=== PATIENT | female | born 1955 | race Caucasian/White ===

== ENCOUNTER 2020-07-30 06:54 | Inpatient (IN) ==
[2020-07-24 13:35] LABS: Basophils % 0.3 % (0.0-0.8); Eosinophils # 0.1 10*3/uL (0.0-0.87); Eosinophils % 1.2 % (0.00-10.9); Hematocrit 41.1 VOL% (35.7-47.0); Hemoglobin 13.5 GM/DL (12.0-16.0); Immature Granulocytes % 0.3 %; Immature Granulocytes Absolute 0.02 #; Lymphocytes # 2.3 10*3/uL (1.4-4.0); Lymphocytes % 33.2 % (21.3-54.2); Mean Corpuscular HGB Conc 32.8 GM/DL (32-36); Mean Corpuscular Volume 94.1 FL (87-102); Mean Platelet Volume 12.1 FL (9.6-12.0); Monocytes % 8.1 % (1.7-12.7); Neutrophils % 56.9 % (38.7-73.9); Platelet Count 216 T/CUMM (130-400); Red Blood Count 4.37 MC/CUMM (3.8-5.5); White Blood Count 6.9 T/CUMM (4-12)
[2020-07-24 13:58] LABS: Calcium 8.7 MG/DL (8.5-10.1); Osmolality,Calculated 282.3 MOS/KG (273-304); Potassium 3.6 MMOL/L (3.5-5.1)
[2020-07-24 14:34] LABS: INR 0.9
[2020-07-30] MEDS ORDERED: VANCOMYCIN INJ 500 MG in SODIUM CHLORIDE 0.9% 100 ML IV ONE (07:00)
[2020-07-30] MEDS ORDERED: FAMOTIDINE 20 MG TABLET PO ONE (07:22)
[2020-07-30] MEDS ORDERED: DIAZEPAM 5 MG TABLET PO ONE (07:22)
[2020-07-30] MEDS ORDERED: ACETAMINOPHEN 500 MG TABLET PO ONE (07:22)
[2020-07-30] MEDS ORDERED: ALBUTEROL/IPRATROPIUM 3 ML NEB RESP TX ONE (07:22)
[2020-07-30] MEDS ORDERED: HEPARIN/NACL 0.9% 2 UNITS/ML 500 ML IV ONE (07:22)
[2020-07-30] MEDS ORDERED: MIDAZOLAM 2 MG/2 ML VIAL ONE ×2 (07:23→07:43)
[2020-07-30] MEDS ORDERED: fentaNYL 100 MCG/2 ML VIAL ONE ×3 (07:23→09:45)
[2020-07-30] MEDS ORDERED: NITROGLYCERIN DRIP 50 MG/250 ML BOTTLE IV ONE (08:10)
[2020-07-30] MEDS ORDERED: PHENYLEPHRINE DRIP 20 MG/250 ML PREMIX IV ONE (08:11)
[2020-07-30] MEDS: LACTATED RINGERS 1,000 ML IV SCH ×3 (09:00→15:01)
[2020-07-30] MEDS ORDERED: ROCURONIUM 50 MG/5 ML VIAL IV ONE (11:03)
[2020-07-30] MEDS ORDERED: LIDOCAINE 2% 5 ML VIAL ONE (11:03)
[2020-07-30] MEDS ORDERED: PHENYLEPHRINE 1 MG/10 ML SYRINGE IV ONE ×2 (11:03→12:51)
[2020-07-30] MEDS ORDERED: DEXAMETHASONE 4 MG/1 ML VIAL ONE (11:03)
[2020-07-30] MEDS ORDERED: ONDANSETRON 4 MG/2 ML VIAL ONE (11:03)
[2020-07-30] MEDS ORDERED: propofoL 200 MG/20 ML VIAL IV ONE (11:03)
[2020-07-30] MEDS ORDERED: NEOSTIGMINE 10 MG/10 ML VIAL ONE (11:04)
[2020-07-30] MEDS ORDERED: GLYCOPYRROLATE 0.4 MG/2 ML VIAL ONE (11:04)
[2020-07-30] MEDS ORDERED: BISACODYL 5 MG TABLET PO PRN (11:08)
[2020-07-30] MEDS ORDERED: HYDROmorphone 2 MG/1 ML VIAL ONE (11:35)
[2020-07-30 11:45] LABS: Bilirubin,Urine Negative (Negative); Blood, Urine Negative (Negative); Glucose,Urine (UA) Negative (Negative); Ketones,Urine Negative (Negative); Mucus,Urine Occasional /LPF (Occasional); Nitrite,Urine Negative (Negative); Protein,Urine Negative; RBC,Urine 1 /HPF (0-4); Squamous Epithelial Cell,Urine Occasional /HPF (0-10); Urine Appearance CLEAR (Clear); Urine Color Yellow (Yellow); Urine Specific Gravity 1.013 (1.001-1.035); Urine Urobilinogen < 2.0 EU/DL (0.2-1.0)
[2020-07-30] MEDS ORDERED: SEVOFLURANE 1 UNIT/15 MINUTE INH ONE (11:47)
[2020-07-30] MEDS ORDERED: ALBUMIN 5% 12.5 GM in PREMIX 1 EACH IV ONE (12:15)
[2020-07-30] MEDS ORDERED: ALBUMIN 5% 12.5 GM/250 ML VIAL IV ONE (12:15)
[2020-07-30] MEDS ORDERED: PHENYLEPHRINE DRIP 40 MG/250 ML PREMIX IV ONE (13:15)
[2020-07-30] MEDS: fentaNYL 2 MCG/ROPIV 0.2% EPID 100 ML EPIDURAL SCH (15:00)
[2020-07-30] MEDS: ALBUTEROL/IPRATROPIUM 3 ML NEB RESP TX SCH (15:45)
[2020-07-31] MEDS: ALBUTEROL/IPRATROPIUM 3 ML NEB RESP TX SCH ×5 (00:04→19:41)
[2020-07-31] MEDS: fentaNYL 2 MCG/ROPIV 0.2% EPID 100 ML EPIDURAL SCH ×2 (00:45→05:04)
[2020-07-31] MEDS ORDERED: ENOXAPARIN 40 MG/0.4 ML SYRINGE SUBCUT SCH (05:10)
[2020-07-31 05:45] LABS: Basophils % 0.1 % (0.0-0.8); Hematocrit 32.5 VOL% (35.7-47.0); Hemoglobin 10.7 GM/DL (12.0-16.0); Immature Granulocytes % 0.5 %; Immature Granulocytes Absolute 0.07 #; Lymphocytes # 1.9 10*3/uL (1.4-4.0); Lymphocytes % 12.1 % (21.3-54.2); Mean Corpuscular HGB Conc 32.9 GM/DL (32-36); Mean Corpuscular Volume 93.4 FL (87-102); Mean Platelet Volume 11.2 FL (9.6-12.0); Monocytes % 10.3 % (1.7-12.7); Platelet Count 200 T/CUMM (130-400); Red Blood Count 3.48 MC/CUMM (3.8-5.5); Red Cell Distribution Width 12.4 % (9.3-17.3); White Blood Count 15.4 T/CUMM (4-12)
[2020-07-31 06:50] LABS: Osmolality,Calculated 279.3 MOS/KG (273-304); Potassium 3.7 MMOL/L (3.5-5.1)
[2020-07-31] MEDS: LACTATED RINGERS 1,000 ML IV SCH ×2 (09:35)
[2020-08-01] MEDS: fentaNYL 2 MCG/ROPIV 0.2% EPID 100 ML EPIDURAL SCH (01:06)
[2020-08-01] MEDS: ALBUTEROL/IPRATROPIUM 3 ML NEB RESP TX SCH ×4 (01:28→19:52)
[2020-08-01] MEDS ORDERED: oxyCODONE/ACETAMINOPHEN 5-325 MG TABLET PO PRN ×2 (11:23)
[2020-08-01] MEDS ORDERED: HYDROmorphone 2 MG/1 ML VIAL IV PRN (11:24)
[2020-08-01] MEDS: KETOROLAC 10 MG TABLET PO SCH ×3 (12:29→23:49)
[2020-08-01] MEDS: ESTRADIOL 2 MG TABLET PO SCH (20:43)
[2020-08-01] MEDS ORDERED: ATORVASTATIN 10 MG TABLET PO SCH (21:00)
[2020-08-02] MEDS: ALBUTEROL/IPRATROPIUM 3 ML NEB RESP TX SCH ×4 (00:57→20:15)
[2020-08-02] MEDS: KETOROLAC 10 MG TABLET PO SCH ×3 (05:53→18:13)
[2020-08-02] MEDS: ONDANSETRON 4 MG/2 ML VIAL IV PRN (19:25)
[2020-08-02] MEDS: ATORVASTATIN 10 MG TABLET PO SCH (21:01)
[2020-08-02] MEDS: ESTRADIOL 2 MG TABLET PO SCH (21:01)
[2020-08-03] MEDS: KETOROLAC 10 MG TABLET PO SCH ×4 (00:16→18:09)
[2020-08-03] MEDS: ALBUTEROL/IPRATROPIUM 3 ML NEB RESP TX SCH ×4 (00:58→19:33)
[2020-08-03] MEDS: ONDANSETRON 4 MG/2 ML VIAL IV PRN ×2 (07:37→12:54)
[2020-08-03 12:19] LABS: Basophils # 0.1 10*3/uL (0.0-0.2); Basophils % 0.8 % (0.0-0.8); Eosinophils % 0.1 % (0.00-10.9); Hematocrit 41.3 VOL% (35.7-47.0); Hemoglobin 13.2 GM/DL (12.0-16.0); Immature Granulocytes % 1.3 %; Immature Granulocytes Absolute 0.13 #; Lymphocytes # 0.7 10*3/uL (1.4-4.0); Lymphocytes % 6.9 % (21.3-54.2); Mean Platelet Volume 10.6 FL (9.6-12.0); Monocytes % 19.7 % (1.7-12.7); Neutrophils % 71.2 % (38.7-73.9); Platelet Count 272 T/CUMM (130-400); Red Blood Count 4.44 MC/CUMM (3.8-5.5); Red Cell Distribution Width 12.2 % (9.3-17.3); White Blood Count 9.8 T/CUMM (4-12)
[2020-08-03 12:36] LABS: Calcium 9.1 MG/DL (8.5-10.1); Osmolality,Calculated 278.2 MOS/KG (273-304); Potassium 2.7 MMOL/L (3.5-5.1)
[2020-08-03 12:48] LABS: Band Neutrophils 10 % (0-10); Lymphocytes 5 % (20-55); Segmented Neutrophils 63 % (50-85); Total Cells Counted 100
[2020-08-03 12:49] LABS: Platelet Estimate Adequate
[2020-08-03] MEDS: LACTATED RINGERS 1,000 ML IV SCH ×2 (12:52→23:34)
[2020-08-03] MEDS: metroNIDAZOLE INJ 500 MG in PREMIX 1 EACH IV SCH (16:06)
[2020-08-03] MEDS: VANCOMYCIN 50 MG/ML 60 ML/BOTTLE PO SCH ×2 (17:21→23:55)
[2020-08-03] MEDS: POTASSIUM CHLORIDE RIDER 10 MEQ in PREMIX 1 EACH IV PRN ×5 (17:21→23:54)
[2020-08-03] MEDS: ESTRADIOL 2 MG TABLET PO SCH (21:47)
[2020-08-03] MEDS: ATORVASTATIN 10 MG TABLET PO SCH (21:47)
[2020-08-04] MEDS: ALBUTEROL/IPRATROPIUM 3 ML NEB RESP TX SCH ×4 (00:11→20:20)
[2020-08-04] MEDS: KETOROLAC 10 MG TABLET PO SCH ×5 (00:13→23:46)
[2020-08-04] MEDS: metroNIDAZOLE INJ 500 MG in PREMIX 1 EACH IV SCH ×4 (01:31→23:46)
[2020-08-04 03:47] LABS: Basophils % 0.3 % (0.0-0.8); Hematocrit 40.4 VOL% (35.7-47.0); Hemoglobin 13.3 GM/DL (12.0-16.0); Immature Granulocytes % 2.1 %; Immature Granulocytes Absolute 0.29 #; Lymphocytes % 7.1 % (21.3-54.2); Mean Corpuscular HGB Conc 32.9 GM/DL (32-36); Mean Corpuscular Volume 91.8 FL (87-102); Monocytes % 22.8 % (1.7-12.7); Neutrophils % 67.7 % (38.7-73.9); Platelet Count 285 T/CUMM (130-400); Red Cell Distribution Width 12.2 % (9.3-17.3); White Blood Count 13.9 T/CUMM (4-12)
[2020-08-04 04:14] LABS: Calcium 8.7 MG/DL (8.5-10.1); Osmolality,Calculated 291.8 MOS/KG (273-304); Potassium 3.3 MMOL/L (3.5-5.1)
[2020-08-04 04:57] LABS: Band Neutrophils 9 % (0-10); Lymphocytes 7 % (20-55); Microcytosis Slight; Platelet Estimate Normal; Segmented Neutrophils 69 % (50-85); Total Cells Counted 100
[2020-08-04 04:58] LABS: Polychromasia Slight
[2020-08-04] MEDS: POTASSIUM CHLORIDE RIDER 10 MEQ in PREMIX 1 EACH IV PRN ×5 (06:03→21:12)
[2020-08-04] MEDS: VANCOMYCIN 50 MG/ML 60 ML/BOTTLE PO SCH ×4 (06:03→23:47)
[2020-08-04] MEDS ORDERED: LACTATED RINGERS 2,000 ML IV ONE (09:16)
[2020-08-04] MEDS: LACTATED RINGERS 1,000 ML IV SCH ×2 (11:24→19:00)
[2020-08-04 14:37] LABS: Calcium 8.4 MG/DL (8.5-10.1); Osmolality,Calculated 300.5 MOS/KG (273-304); Potassium 3.3 MMOL/L (3.5-5.1)
[2020-08-04] MEDS: ATORVASTATIN 10 MG TABLET PO SCH (21:11)
[2020-08-04] MEDS: ESTRADIOL 2 MG TABLET PO SCH (21:11)
[2020-08-05] MEDS: ALBUTEROL/IPRATROPIUM 3 ML NEB RESP TX SCH ×4 (01:25→19:40)
[2020-08-05] MEDS: POTASSIUM CHLORIDE RIDER 10 MEQ in PREMIX 1 EACH IV PRN ×3 (04:21→06:20)
[2020-08-05] MEDS: KETOROLAC 10 MG TABLET PO SCH ×4 (05:22→23:23)
[2020-08-05] MEDS: VANCOMYCIN 50 MG/ML 60 ML/BOTTLE PO SCH ×4 (05:23→23:23)
[2020-08-05 05:58] LABS: Hematocrit 32.4 VOL% (35.7-47.0); Hemoglobin 11.1 GM/DL (12.0-16.0); Immature Granulocytes % 4.5 %; Immature Granulocytes Absolute 0.77 #; Lymphocytes # 1.3 10*3/uL (1.4-4.0); Lymphocytes % 7.7 % (21.3-54.2); Mean Corpuscular HGB Conc 34.3 GM/DL (32-36); Mean Corpuscular Volume 88.8 FL (87-102); Mean Platelet Volume 11.8 FL (9.6-12.0); Monocytes % 14.6 % (1.7-12.7); Neutrophils % 73.2 % (38.7-73.9); Platelet Count 279 T/CUMM (130-400); Red Blood Count 3.65 MC/CUMM (3.8-5.5); Red Cell Distribution Width 12.5 % (9.3-17.3); White Blood Count 17.1 T/CUMM (4-12)
[2020-08-05 06:18] LABS: Calcium 8.3 MG/DL (8.5-10.1); Osmolality,Calculated 296.8 MOS/KG (273-304); Potassium 3.2 MMOL/L (3.5-5.1)
[2020-08-05 06:28] LABS: Band Neutrophils 3 % (0-10); Hypochromasia 1+; Lymphocytes 4 % (20-55); Segmented Neutrophils 82 % (50-85); Total Cells Counted 100
[2020-08-05 06:29] LABS: Microcytosis 1+
[2020-08-05] MEDS: LACTATED RINGERS 1,000 ML IV SCH ×3 (07:23→13:05)
[2020-08-05] MEDS: metroNIDAZOLE INJ 500 MG in PREMIX 1 EACH IV SCH ×3 (08:35→23:22)
[2020-08-05] MEDS: ATORVASTATIN 10 MG TABLET PO SCH (20:53)
[2020-08-05] MEDS: ESTRADIOL 2 MG TABLET PO SCH (20:53)
[2020-08-06] MEDS: ALBUTEROL/IPRATROPIUM 3 ML NEB RESP TX SCH ×4 (00:48→19:14)
[2020-08-06] MEDS: LACTATED RINGERS 1,000 ML IV SCH ×2 (00:54→09:18)
[2020-08-06 06:19] LABS: Osmolality,Calculated 294.4 MOS/KG (273-304); Potassium 3.4 MMOL/L (3.5-5.1)
[2020-08-06] MEDS: KETOROLAC 10 MG TABLET PO SCH (06:40)
[2020-08-06] MEDS: POTASSIUM CHLORIDE RIDER 10 MEQ in PREMIX 1 EACH IV PRN ×5 (06:40→22:42)
[2020-08-06] MEDS: VANCOMYCIN 50 MG/ML 60 ML/BOTTLE PO SCH ×4 (06:41→23:46)
[2020-08-06] MEDS: metroNIDAZOLE INJ 500 MG in PREMIX 1 EACH IV SCH ×3 (08:11→23:46)
[2020-08-06] MEDS: LACTOBACILLUS ACIDOPHILUS/BULGARICUS 1 PACKET PO SCH ×2 (15:13→21:36)
[2020-08-06] MEDS: METOCLOPRAMIDE 10 MG TABLET PO SCH ×2 (16:28→21:36)
[2020-08-06] MEDS: ESTRADIOL 2 MG TABLET PO SCH (21:36)
[2020-08-06] MEDS: ATORVASTATIN 10 MG TABLET PO SCH (21:36)
[2020-08-07] MEDS: POTASSIUM CHLORIDE RIDER 10 MEQ in PREMIX 1 EACH IV PRN ×3 (00:54→03:46)
[2020-08-07] MEDS: ALBUTEROL/IPRATROPIUM 3 ML NEB RESP TX SCH ×4 (01:22→19:44)
[2020-08-07] MEDS: METOCLOPRAMIDE 10 MG TABLET PO SCH ×4 (03:47→21:41)
[2020-08-07] MEDS: VANCOMYCIN 50 MG/ML 60 ML/BOTTLE PO SCH ×3 (06:34→17:23)
[2020-08-07] MEDS: LACTATED RINGERS 1,000 ML IV SCH (08:07)
[2020-08-07] MEDS: metroNIDAZOLE INJ 500 MG in PREMIX 1 EACH IV SCH ×2 (08:08→16:35)
[2020-08-07] MEDS: LACTOBACILLUS ACIDOPHILUS/BULGARICUS 1 PACKET PO SCH ×3 (08:08→21:41)
[2020-08-07] MEDS: ESTRADIOL 2 MG TABLET PO SCH (21:41)
[2020-08-07] MEDS: ATORVASTATIN 10 MG TABLET PO SCH (21:41)
[2020-08-08] MEDS: ALBUTEROL/IPRATROPIUM 3 ML NEB RESP TX SCH ×2 (01:20→07:15)
[2020-08-08] MEDS: metroNIDAZOLE INJ 500 MG in PREMIX 1 EACH IV SCH ×2 (02:43→11:01)
[2020-08-08] MEDS: VANCOMYCIN 50 MG/ML 60 ML/BOTTLE PO SCH ×2 (02:44→06:01)
[2020-08-08] MEDS: METOCLOPRAMIDE 10 MG TABLET PO SCH (04:14)
[2020-08-08 05:05] LABS: Basophils # 0.1 10*3/uL (0.0-0.2); Basophils % 0.5 % (0.0-0.8); Eosinophils % 0.1 % (0.00-10.9); Hemoglobin 10.1 GM/DL (12.0-16.0); Immature Granulocytes % 9.6 %; Immature Granulocytes Absolute 1.86 #; Lymphocytes # 2.3 10*3/uL (1.4-4.0); Mean Corpuscular HGB Conc 31.6 GM/DL (32-36); Mean Corpuscular Volume 96.1 FL (87-102); Monocytes % 12.1 % (1.7-12.7); Neutrophils % 65.7 % (38.7-73.9); Platelet Count 300 T/CUMM (130-400); Red Blood Count 3.33 MC/CUMM (3.8-5.5); Red Cell Distribution Width 13.4 % (9.3-17.3); White Blood Count 19.3 T/CUMM (4-12)
[2020-08-08 05:34] LABS: Band Neutrophils 3 % (0-10); Hypochromasia 1+; Lymphocytes 13 % (20-55); Microcytosis 1+; Platelet Estimate Adequate; Segmented Neutrophils 75 % (50-85); Total Cells Counted 100
[2020-08-08 05:40] LABS: Calcium 7.9 MG/DL (8.5-10.1); Osmolality,Calculated 295.7 MOS/KG (273-304); Potassium 3.2 MMOL/L (3.5-5.1)
[2020-08-08] MEDS: POTASSIUM CHLORIDE RIDER 10 MEQ in PREMIX 1 EACH IV PRN (06:27)
[2020-08-08] MEDS: LACTOBACILLUS ACIDOPHILUS/BULGARICUS 1 PACKET PO SCH (11:01)
[2020-08-08 11:08] VITALS: BP 129/72
== END 2020-08-08 12:08 | disposition home or self-care (01) | DRG 164 ==
LOC: N.OR 06:54 → N.SDSINP 06:57 → EDSTATUS 09:30 → N.SDSINP 11:08 → N.3E 14:49
PROVIDERS: ADMIT Surgery; ATTEND Surgery